=== PATIENT | female | born 1990 | race Caucasian/White ===

== ENCOUNTER 2021-12-10 18:41 | Emergency (ER) | payer MEDICAID ==
[2021-12-10 19:36] LABS: ANION GAP 10.8 mmol/L (5-15)
[2021-12-10 19:59] LABS: CORONAVIRUS COVID-19 NAA NEGATIVE (NEGATIVE)
[2021-12-10 20:00] LABS: RESPIRATORY SYNCYTIAL VIR NAA NEGATIVE (NEGATIVE)
== END 2021-12-10 20:35 | disposition home or self-care (01) ==
LOC: VM.ED 18:41
DX: R53.81 Other malaise (principal); R53.83 Other fatigue; Z20.822 Contact with and (suspected) exposure to COVID-19
CPT/HCPCS: 0241U; 36415; 80053; 81003; 85025; 99284

== ENCOUNTER 2022-01-28 17:34 | Emergency (ER) | payer SELFPAY | END 2022-01-28 18:00 | disposition home or self-care (01) | LOC: VM.ED 17:34 | DX: Z48.01 Encounter for change or removal of surgical wound dressing (principal) | CPT/HCPCS: 99282; 99283 ==